=== PATIENT | female | born 1960 | race Caucasian/White ===

== ENCOUNTER 2020-06-15 20:06 | Emergency (ER) | payer BC, SELFPAY ==
--- NOTE | ~2020-06-15 | CT_ITS ---
EXAMINATION: CT abdomen pelvis w con DATE: 06/15/2020 22:40 INDICATION: Abdominal pain TECHNIQUE: Computed tomography (CT) of the abdomen and pelvis was performed with 100 cc Omnipaque 350 intravenous contrast. Automated exposure control and iterative reconstruction technique were employe d. Exam dose: 340.72 mGy-cm total exam DLP. COMPARISON: None. FINDINGS: There is mild discoid atelectasis or more likely scarring in the medial segment middle lobe and the base of the lingula. No infiltrate or consolidation at the lung bases. Normal heart size. No pericardial or pleural effusion. The liver, gallbladder, bile ducts, pancreas, pancreatic duct and spleen are unremarkable. Normal morphology of the adrenal glands. No renal mass lesion or urinary tract calculus or hydroureteronephrosis is evident. Normal caliber of the abdominal aorta. No abdominal aortic aneurysm. 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 Very small sliding hiatal hernia. No bowel obstruction, bowel wall thickening, pneumatosis or intraperitoneal free air. Mild fat-containing umbilical hernia. The urinary bladder is evacuated and not optimally evaluated. Status post hysterectomy. Included skeletal structures are unremarkable. IMPRESSION: Large lipoma the left iliopsoas muscle Very small sliding hiatal hernia Reviewed, dictated and finalized at [facility]. Reviewed, dictated and finalized at [facility].
[2020-06-15 20:08] VITALS: BP 150/98; PULSE 132; RESP 26; TEMP 35.8; O2SAT 100
[2020-06-15 21:00] VITALS: BP 135/95; PULSE 95; RESP 15; O2SAT 99
[2020-06-15] MEDS: ONDANSETRON INJ 4 MG/2 ML VIAL IV PUSH (21:25)
[2020-06-15] MEDS: SODIUM CHLORIDE 0.9% IV 1,000 ML 999 ML IV CONT (21:25)
[2020-06-15 21:46] LABS: Basophils Absolute Auto 0.1 K/mm3 (0.0-0.1); Basophils Percent Auto 0.4 % (0.2-1.2); Eosinophils Absolute Auto 0.1 K/mm3 (0-0.3); Eosinophils Percent Auto 0.4 % (0-4.4); Hematocrit 47.5 % (37.0-47.0); Hemoglobin 16.8 g/dL (12.0-15.0); Immature Granulocyte Absolute 0.05 K/mm3 (0.00-0.031); Immature Granulocyte Percent A 0.4 % (0-0.5); Lymphocytes Absolute Auto 3.41 K/mm3 (0.9-3.2); Lymphocytes Percent Auto 30.6 % (18.3-44.2); Mean Corpuscular HGB Conc 35.4 g/dl (32-36); Mean Corpuscular Hemoglobin 32.7 pg (26-34); Mean Corpuscular Volume 92.6 fl (80-100); Mean Platelet Volume 9.6 fl (7.4-10.4); Monocytes Absolute Auto 1.1 K/mm3 (0.1-0.6); Monocytes Percent Auto 10.1 % (2.6-8.5); Neutrophils Absolute Auto 6.5 K/mm3 (1.3-6.7); Neutrophils Percent Auto 58.1 % (45.5-73.1); Platelet Count Result 348 k/mm3 (150-375); Red Blood Count 5.13 M/mm3 (4.2-5.4); Red Cell Distribution Width 13.1 % (11.5-14.5); White Blood Count 11.2 K/mm3 (4.5-10.0)
[2020-06-15 21:55] LABS: Alanine Aminotransferase 17 U/L (4-35); Albumin Level 4.7 g/dL (3.5-5.1); Alkaline Phosphatase 68 U/L (38-126); Anion Gap 11 mmol/L (8-16); Aspartate Amino Transferase 24 U/L (14-36); Bilirubin,Total 0.8 mg/dL (0.2-1.3); Blood Urea Nitrogen 17 mg/dL (7-17); Carbon Dioxide 23 mmol/L (22-30); Chloride 106 mmol/L (98-107); Estimated CRCL calculation 53 ml/min; Estimated Glomerular Filt Rate > 60; Glucose 108 mg/dL (65-105); Lipase 107 U/L (23-300); Potassium 3.1 mmol/L (3.4-5.0); Sodium 140 mmol/L (137-145)
[2020-06-15 22:00] VITALS: BP 126/72; PULSE 82; RESP 17; O2SAT 100
[2020-06-15] MEDS: PROCHLORPERAZINE EDISYLATE 10 MG/2 ML VIAL IV PUSH (22:47)
[2020-06-15 23:00] VITALS: BP 146/72; PULSE 94; RESP 23; O2SAT 98
[2020-06-15 23:05] LABS: Add Urine Microscopic? YES; Appearance Urine Cloudy (Clear); Bilirubin Urine 1+ (Negative); Blood Urine Negative (Negative); Color Urine Amber (Yellow); Glucose Urine UA Negative (Negative); Ketones Urine 2+ mg/dL (Negative); Leukocyte Esterase Ur Negative LEU/UL (Negative); Mucus Urine Heavy /lpf; Nitrate Urine Negative (Negative); Protein Urine 2+ mg/dL (Negative); Squamous Epithelial Cell Urine Few /hpf (Few); WBC Urine 0-3 /hpf
[2020-06-15 23:12] LABS: Specific Grav Ur 1.032 (1.001-1.035)
--- NOTE | 2020-06-15 23:55 | ED.GENADULT ---
HPI - General Adult General Chief complaint: Nausea/Vomiting/Diarrhea Stated complaint: nausea vomiting Time Seen by Provider: 06/15/20 20:44 History of Present Illness HPI narrative: Patient is a 60-year-old female presents to emergency department chief complaint of nausea and vomiting. Patient reports for the last 3 days she has been having episodes of nausea and vomiting unable to keep fluids down. Patient states that she has had episodes like this before in the past reports she has some discomfort in her abdomen as well. Patient states she feels extremely dry and extremely dehydrated. Patient reports it is worse whenever she tries to eat or drink and improve with rest. Related Data Allergies Allergy/AdvReac Type Severity Reaction Status Date / Time No Known Allergies Allergy Unverified 05/15/15 16:07 Review of Systems Review of Systems: Narrative: A 10 system review of systems was completed on the patient and is negative except for what is stated in the HPI. Nursing and ancillary documentation was reviewed. Exam Narrative: Exam Narrative: GENERAL: Well-appearing, well-nourished, and in no acute distress. HEAD: Normocephalic, atraumatic. EYES: PERRLA and EOMI. ENT: Nares clear, no rhinorrhea or epistaxis. Mucous membranes moist. NECK: Supple. CHEST: Clear to auscultation. No respiratory distress. HEART: Regular rate and rhythm. No murmur heard. Normal peripheral pulses. ABDOMEN: Soft, mild tenderness, nondistended, normal active bowel sounds. EXTREMITIES: Normal range of motion. No edema. SKIN: Warm, dry, no rash. NEURO: No focal deficits. Alert and oriented x3. PSYCH: Normal mood and affect. Course Course Emergency Course: CT scan showed no evidence of acute abnormalities there was evidence of a hiatal hernia Vital Signs Vital signs: Vital Signs Temperature 35.8 C L 06/15/20 20:08 Pulse Rate 132 H 06/15/20 20:08 Respiratory Rate 26 H 06/15/20 20:08 Blood Pressure 150/98 H 06/15/20 20:08 Pulse Oximetry 100 06/15/20 20:08 Temperature 35.8 C L 06/15/20 20:08 Pulse Rate 94 06/15/20 23:00 Respiratory Rate 23 H 06/15/20 23:00 Blood Pressure 146/72 H 06/15/20 23:00 Pulse Oximetry 98 06/15/20 23:00 Medical Decision Making Vital Signs Vital Signs: Vital Signs Temperature 35.8 C L 06/15/20 20:08 Pulse Rate 132 H 06/15/20 20:08 Respiratory Rate 26 H 06/15/20 20:08 Blood Pressure 150/98 H 06/15/20 20:08 Pulse Oximetry 100 06/15/20 20:08 Temperature 35.8 C L 06/15/20 20:08 Pulse Rate 94 06/15/20 23:00 Respiratory Rate 23 H 06/15/20 23:00 Blood Pressure 146/72 H 06/15/20 23:00 Pulse Oximetry 98 06/15/20 23:00 Lab Data Result diagrams: 06/15/20 21:40 06/15/20 21:40 Labs: Lab Results 06/15/20 06/15/20 06/15/20 Range/Units 21:40 21:40 22:44 WBC 11.2 H (4.5-10.0) K/mm3 RBC 5.13 (4.2-5.4) M/mm3 Hgb 16.8 H (12.0-15.0) g/dL Hct 47.5 H (37.0-47.0) % MCV 92.6 (80-100) fl MCH 32.7 (26-34) pg MCHC 35.4 (32-36) g/dl RDW 13.1 (11.5-14.5) % Plt Count 348 (150-375) k/mm3 MPV 9.6 (7.4-10.4) fl Immature Gran % (Auto) 0.4 (0-0.5) % Neut % (Auto) 58.1 (45.5-73.1) % Lymph % (Auto) 30.6 (18.3-44.2) % Phillips % (Auto) 10.1 H (2.6-8.5) % Eos % (Auto) 0.4 (0-4.4) % Baso % (Auto) 0.4 (0.2-1.2) % Lymph # (Auto) 3.41 H (0.9-3.2) K/mm3 Phillips # (Auto) 1.1 H (0.1-0.6) K/mm3 Eos # (Auto) 0.1 (0-0.3) K/mm3 Baso # (Auto) 0.1 (0.0-0.1) K/mm3 Abs Immat Gran (auto) 0.05 H (0.00-0.031) K/mm3 Absolute Neuts (auto) 6.5 (1.3-6.7) K/mm3 Absolute Nucleated RBC 0.0 (0.0-0.012) K/mm3 Nucleated RBC % 0.0 (0.0-0.2) % Sodium 140 (137-145) mmol/L Potassium 3.1 L (3.4-5.0) mmol/L Chloride 106 (98-107) mmol/L Carbon Dioxide 23 (22-30) mmol/L Anion Gap 11 (8-16) mmol/L BUN 17 (7-17) mg/dL Creatinine 0.90
[2020-06-16 00:10] VITALS: BP 131/82; PULSE 110; RESP 18; O2SAT 99
== END 2020-06-16 00:10 | disposition home or self-care (01) ==
PROVIDERS: Emergency Provider Emergency Medicine; PCP Family Medicine
DX: K52.9 Noninfective gastroenteritis and colitis, unspecified (principal)
CPT/HCPCS: 36415; 74177; 80053; 81001; 83690; 85025; 96361; 96374; 96375; 99284; J0780; J2405; J7030; Q9967